=== PATIENT | female | born 1975 | race American Indian/Alaskan Native ===

== ENCOUNTER 2017-05-31 19:34 | Emergency (ER) | payer MEDICAID ==
[2017-05-31 19:34] VITALS: BMI 19.6
[2017-05-31 19:46] VITALS: TEMP 98.4
[2017-05-31] MEDS ORDERED: Ciprofloxacin 0.3% OPTH SOLN OU STA (19:58)
--- NOTE | 2017-05-31 20:00 | C.PDOC ---
Time Seen by Provider: 05/31/17 19:48 Chief Complaint (Nursing): Eye Problem Past Medical History Vital Signs: Last Vital Signs Temp 98.4 F 05/31/17 19:43 Pulse 100 H 05/31/17 19:43 Resp 20 05/31/17 19:43 BP 173/103 H 05/31/17 19:43 Pulse Ox 97 05/31/17 19:43 - Medical History PMH: Fractures (right foot), Chronic Pain (sciatica) Denies: Chronic Kidney Disease Family History: States: Unknown Family Hx - Social History Hx Alcohol Use: No Hx Substance Use: No - Immunization History Hx Tetanus Toxoid Vaccination: Yes Hx Influenza Vaccination: No Hx Pneumococcal Vaccination: No ED Course And Treatment O2 Sat by Pulse Oximetry: 97 Disposition - Disposition Forms: [employer] (Romansh)
--- NOTE | 2017-05-31 20:03 | C.PDOC ---
History Of Present Illness 41 y/o male presents to the ED with c/o bilateral eye redness, white discharge , tearing, and burning sensation for two days. Patient has had similar episodes in the past and was told by PMD she has allergies. The medications that were prescribed provided relief but have been completed. The patient denies visual acuity changes, headaches, dizziness, and itchiness. Time Seen by Provider: 05/31/17 19:48 Chief Complaint (Nursing): Eye Problem History Per: Patient History/Exam Limitations: no limitations Onset/Duration Of Symptoms: Days Current Symptoms Are (Timing): Still Present Injury To Eye?: No Wears Contact Lens?: No Associated Symptoms: Discharge From Eye. denies: Decreased Vision, Itching Recent travel outside of the [place]: No Past Medical History Reviewed: Historical Data, Nursing Documentation, Vital Signs Vital Signs: Last Vital Signs Temp 98.4 F 05/31/17 19:43 Pulse 92 H 05/31/17 20:19 Resp 18 05/31/17 20:19 BP 154/89 H 05/31/17 20:19 Pulse Ox 97 05/31/17 21:58 - Medical History PMH: Fractures (right foot), Chronic Pain (sciatica) Family History: States: Unknown Family Hx - Social History Hx Alcohol Use: No Hx Substance Use: No - Immunization History Hx Tetanus Toxoid Vaccination: Yes Hx Influenza Vaccination: No Hx Pneumococcal Vaccination: No Review Of Systems Except As Marked, All Systems Reviewed And Found Negative. Constitutional: Negative for: Fever, Chills Eyes: Positive for: Redness, Other (white discharge and burning sensation ). Negative for: Pain, Vision Change ENT: Negative for: Throat Swelling Respiratory: Negative for: Cough, Shortness of Breath Skin: Negative for: Rash Neurological: Negative for: Headache Physical Exam - Physical Exam Appears: Non-toxic, No Acute Distress Skin: Warm, Dry, No Rash Head: Atraumatic, Normacephalic Eye(s): bilateral: PERRL, EOMI, Other (patient is tearing on the exam, bilateral conjunctival injection, and white discharge. No periorbital swelling) Nose: Normal Oral Mucosa: Moist Tongue: Normal Appearing Neck: Supple Chest: Symmetrical Cardiovascular: Rhythm Regular Respiratory: Normal Breath Sounds Gastrointestinal/Abdominal: Normal Exam, Soft, No Tenderness, No Guarding, No Rebound Extremity: Normal ROM, Capillary Refill (<2sec.) Neurological/Psych: Oriented x3, Normal Speech, Normal Cognition Gait: Steady ED Course And Treatment O2 Sat by Pulse Oximetry: 97 (RA) Progress Note: The patient was given Ciprofloxacin. Patient is resting comfortably, and is stable for discharge. Patient receives the Rx Azelastine HCl 1 drop OP BID #6 ml. 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 Disposition - Disposition Referrals: Obdulio Cazares MD [Staff Provider] - Disposition: HOME/ ROUTINE Disposition Time: 20:00 Condition: STABLE Additional Instructions: Follow up with PMD within 1-2 days. Return to ED if feel worse. 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 (Cydni Estes) - Scribe Statement The provider has reviewed the documentation as recorded by the Scribe (Cyndi Estes) All medical record entries made by the Scribe were at my direction and personally dictated by me. I have reviewed the chart and agree that the record accurately reflects my personal performance of the history, physical exam, medical decision making, and the department course for this patient. I have also personally directed, reviewed, and agree with the discharge instructions and disposition.
[2017-05-31] MEDS ORDERED: Ciprofloxacin 0.3% OPTH SOLN ONE (20:12)
[2017-05-31 20:20] VITALS: BP 154/89; PULSE 92; RESP 18
[2017-05-31 21:24] VITALS: O2SAT 97
== END 2017-05-31 20:20 | disposition home or self-care (01) ==
LOC: C.ER 19:34
DX: H10.9 Unspecified conjunctivitis (principal)

== ENCOUNTER 2018-09-14 21:51 | Emergency (ER) | payer MEDICAID ==
[2018-09-14 21:51] VITALS: BMI 19.6
[2018-09-14 22:10] VITALS: BP 151/90; PULSE 113; RESP 20; TEMP 98.9; O2SAT 98
[2018-09-15] MEDS ORDERED: Naproxen 550 mg Tab PO STA (00:03)
[2018-09-15] MEDS ORDERED: Naproxen 550 mg Tab PO ONE (00:11)
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
--- NOTE | 2018-09-15 08:06 | RAD ---
Date of service: 09/15/2018 PROCEDURE: Radiographs of the Lumbar Spine. HISTORY: hx of spinal fusion, back trauma, low back pain COMPARISON: No prior. FINDINGS: BONES: Six non rib-bearing lumbar vertebrae noted. For purposes of this report T12 will be considered with rudimentary ribs. Normal alignment. No listhesis. No fracture. Paired L5 and S1 pedicle screws with inter pedicular longitudinal interlocking rods present. L5-S1 inter vertebral disc spacer present.-this disc space is shallow with bordering subchondral endplate sclerosis and spondylosis. Other lumbar vertebrae unremarkable. Sacroiliac joints unremarkable. DISC SPACES: Unremarkable. OTHER FINDINGS: None. IMPRESSION: L5-S1 posterolateral fusion with interbody disc spacer. Shallow L5-S1 disc space-transitional elements suggested. Here endplate subchondral sclerosis and spondylosis noted No fracture or hardware failure noted.
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
== END 2018-09-15 00:51 | disposition home or self-care (01) ==
LOC: C.ER 21:51
DX: S30.0XXA Contusion of lower back and pelvis, initial encounter (principal); Y09 Assault by unspecified means